=== PATIENT | male | born 1975 | race African-American/Black ===

== ENCOUNTER 2019-11-08 10:49 | Emergency (ER) | payer OTHER ==
[~2019-11-08] VITALS: Ht 188 cm; Wt 106.8 kg
[~2019-11-08 10:49] MED LIST: ANTIBIOTIC; HTN MED
[2019-11-08] MEDS: MORPHINE SULFATE 2 MG/ML SYRINGE IVP ONE (11:57)
[2019-11-08 11:58] LABS: BASOPHILS % (AUTO) 0.5 % (0.0-2.0); EOSINOPHILS % (AUTO) 5.4 % (1.0-6.0); HEMATOCRIT 51.5 % (41-53); HEMOGLOBIN 16.4 g/dL (13.5-17.5); LYMPHOCYTES # (AUTO) 1.5 K/uL (1.0-4.8); LYMPHOCYTES % (AUTO) 17.6 % (22.0-44.0); MEAN CORPUSCULAR HEMOGLOBIN 23.9 pg (26.0-34.0); MEAN CORPUSCULAR HGB CONC 31.8 G/dL (31.0-37.0); MEAN CORPUSCULAR VOLUME 75 fL (80-100); MONOCYTES # (AUTO) 0.9 K/uL (0.1-1.0); MONOCYTES % (AUTO) 10.3 % (2.0-9.0); NEUTROPHILS # (AUTO) 5.8 K/uL (1.8-7.7); NEUTROPHILS % (AUTO) 66.2 % (40.0-70.0); PLATELET COUNT (AUTO) 179 K/uL (150-450); RED BLOOD CELL COUNT(AUTO) 6.85 MIL/uL (4.50-5.90); RED CELL DISTRIBUTION WIDTH 15.9 % (11.5-14.5)
[2019-11-08] MEDS: AMPICILLIN SODIUM/SULBACTAM NA 3 GM in SODIUM CHLORIDE 0.9% 100 ML IV ONE (12:08)
[2019-11-08 12:12] LABS: ANION GAP 8 mmol/L (8-16); CALCIUM, TOTAL 9.7 mg/dL (8.8-10.5); CARBON DIOXIDE 29 mmol/L (22-29); CHLORIDE 102 mmol/L (98-107); CREATININE 1.34 mg/dL (0.60-1.30); GLOMERULAR FILTR. RATE CALC > 60 mL/min (>60); GLUCOSE,RANDOM 299 mg/dL (70-110); POTASSIUM 4.3 mmol/L (3.5-5.1); SODIUM SERUM 139 mmol/L (136-145); UREA NITROGEN, BLOOD 13 mg/dL (7-18)
[2019-11-08] MEDS ORDERED: SODIUM CHLORIDE 0.9% 100 ML ONE (12:16)
[2019-11-08] MEDS ORDERED: IOVERSOL 320 MG/ML 100 ML VIAL ONE (12:16)
[2019-11-08] MEDS ORDERED: IOVERSOL 350 MG/ML 100 ML VIAL ONE (12:18)
[2019-11-08 14:41] VITALS: BP 149/92
== END 2019-11-08 14:47 | disposition home or self-care (01) ==
LOC: EDUNIT# 10:49 → EMS 10:59
DX: R68.84 Jaw pain (principal); R73.9 Hyperglycemia, unspecified; I10 Essential (primary) hypertension; F17.210 Nicotine dependence, cigarettes, uncomplicated
CPT/HCPCS: 36415; 70491; 80048; 85025; 96365; 96375; 99285; J0295; J2270; J7050; Q9967

== ENCOUNTER 2022-06-18 11:51 | Inpatient (IN) | payer MEDICAID, OTHER ==
[~2022-06-18] VITALS: Ht 182.9 cm; Wt 90.3 kg
[2022-06-18] MEDS ORDERED: SODIUM CHLORIDE 0.9% 1,000 ML IV ONE (12:30)
[2022-06-18 12:32] LABS: BASOPHILS % (AUTO) 1.1 % (0.0-2.0); EOSINOPHILS % (AUTO) 0.7 % (1.0-6.0); HEMOGLOBIN 12.9 g/dL (13.5-17.5); LYMPHOCYTES # (AUTO) 1.4 K/uL (1.0-4.8); LYMPHOCYTES % (AUTO) 14.8 % (22.0-44.0); MEAN CORPUSCULAR HEMOGLOBIN 23.2 pg (26.0-34.0); MEAN CORPUSCULAR HGB CONC 31.5 G/dL (31.0-37.0); MEAN CORPUSCULAR VOLUME 74 fL (80-100); MONOCYTES % (AUTO) 10.1 % (2.0-9.0); NEUTROPHILS % (AUTO) 73.3 % (40.0-70.0); PLATELET COUNT (AUTO) 275 K/uL (150-450); RED BLOOD CELL COUNT(AUTO) 5.56 MIL/uL (4.50-5.90); RED CELL DISTRIBUTION WIDTH 14.2 % (11.5-14.5)
[2022-06-18 12:44] LABS: ANION GAP 6 mmol/L (8-16); CALCIUM, TOTAL 9.4 mg/dL (8.8-10.5); CARBON DIOXIDE 28 mmol/L (22-29); CHLORIDE 102 mmol/L (98-107); CREATININE 1.09 mg/dL (0.60-1.30); GLOMERULAR FILTR. RATE CALC > 60 mL/min (>60); GLUCOSE,RANDOM 252 mg/dL (70-110); POTASSIUM 3.9 mmol/L (3.5-5.1); SODIUM SERUM 136 mmol/L (136-145); UREA NITROGEN, BLOOD 12 mg/dL (7-18)
[2022-06-18 12:50] LABS: ALANINE AMINOTRANSFERASE 42 U/L (12-78); ALKALINE PHOSPHATASE 112 U/L (46-116); ASPARTATE AMINOTRANSFERASE 42 U/L (15-37); BILIRUBIN,TOTAL 0.4 mg/dL (0.1-1.0); TOTAL PROTEIN, SERUM 7.3 g/dL (6.4-8.2)
[2022-06-18] MEDS ORDERED: LORazepam 2 MG/ML VIAL ONE (14:19)
[2022-06-18] MEDS ORDERED: HALOPERIDOL LACTATE 5 MG/ML VIAL ONE (14:19)
[2022-06-18] MEDS ORDERED: DiphenhydrAMINE HCL 50 MG/ML VIAL ONE (14:19)
[2022-06-18] MEDS ORDERED: DiphenhydrAMINE HCL 50 MG/ML VIAL IM ONE (14:30)
[2022-06-18] MEDS ORDERED: LORazepam 2 MG/ML VIAL IM ONE (14:30)
[2022-06-18] MEDS ORDERED: HALOPERIDOL LACTATE 5 MG/ML VIAL IM ONE (14:30)
[2022-06-18] MEDS ORDERED: LORazepam 2 MG TABLET PO PRN (15:00)
[2022-06-18] MEDS ORDERED: HALOPERIDOL 5 MG TABLET PO PRN (15:00)
[2022-06-18 17:57] LABS: COVID AG,FIA SOURCE NASOPHARYNGEAL
[2022-06-18 18:05] LABS: APPEARANCE,URINE CLEAR (CLEAR); BILIRUBIN,URINE NEGATIVE (NEGATIVE); GLUCOSE, URINE (UA) >=1000 mg/dL (NEGATIVE); KETONES,URINE NEGATIVE (NEGATIVE); LEUKOCYTE ESTERASE ,URINE TRACE (NEGATIVE); NITRATE,URINE NEGATIVE (NEGATIVE); OCCULT BLOOD,URINE NEGATIVE (NEGATIVE); PH,URINE 6.5 (5.0-8.0); PROTEIN,URINE NEGATIVE (NEGATIVE)
[2022-06-18 18:12] LABS: AMPHET/METH SCREEN,URINE POSITIVE (NEGATIVE); BARBITURATE SCREEN, URINE NEGATIVE (NEGATIVE); BENZODIAZEPINES SCREEN,URINE NEGATIVE (NEGATIVE); CANNABINOID SCREEN,URINE POSITIVE (NEGATIVE); COCAINE SCREEN,URINE NEGATIVE (NEGATIVE); METHADONE SCREEN, URINE NEGATIVE (NEGATIVE); OPIATE SCREEN,URINE NEGATIVE (NEGATIVE)
[2022-06-18 18:16] LABS: BACTERIA,URINE None Seen /HPF (None Seen); PHENCYCLIDINE SCREEN,URINE NEGATIVE (NEGATIVE); RBC,URINE None Seen /HPF (0-2); SQUAMOUS EPITHELIAL CELL,UR Few /LPF (None Seen); WBC,URINE 0-2 /HPF (0-5)
[2022-06-19 04:12] LABS: GLUCOMETER DEV NAME(LOC) BV3N.; GLUCOSE,POINT OF CARE 182 MG/DL (70-110)
[2022-06-19] MEDS ORDERED: PNEUMOCOCCAL VACCINE POLYVALENT 0.5 ML VIAL [PPSV23] IM. ONE (05:15)
[2022-06-19] MEDS ORDERED: LOPERAMIDE HCL 2 MG CAPSULE PO PRN (05:30)
[2022-06-19] MEDS ORDERED: ONDANSETRON HCL 4 MG TABLET PO PRN (05:30)
[2022-06-19] MEDS ORDERED: OMEPRAZOLE 20 MG CAPSULE PO PRN (05:30)
[2022-06-19] MEDS ORDERED: BENZOCAINE/MENTHOL LOZENGE PO PRN (05:30)
[2022-06-19] MEDS ORDERED: DOCUSATE SODIUM 100 MG CAPSULE PO PRN (05:30)
[2022-06-19] MEDS ORDERED: PETROLATUM,WHITE 28 GM JELLY TP PRN (05:30)
[2022-06-19] MEDS ORDERED: CloNIDine HCL 0.1 MG TABLET PO PRN (05:30)
[2022-06-19] MEDS ORDERED: IBUPROFEN 600 MG TABLET PO PRN (05:30)
[2022-06-19] MEDS ORDERED: MAGNESIUM HYDROXIDE SUSPENSION 30 ML UDCUP PO PRN (05:30)
[2022-06-19] MEDS ORDERED: GLUCAGON,HUMAN RECOMBINANT 1 MG VIAL IM PRN (05:30)
[2022-06-19] MEDS ORDERED: BACITRACIN 28 GM OINTMENT TP PRN (05:30)
[2022-06-19] MEDS ORDERED: MAG HYDROX/AL HYDROX/SIMETH ES 30 ML SUSPENSION UDCUP PO PRN (05:30)
[2022-06-19] MEDS ORDERED: ALBUTEROL SULFATE HFA 90 MCG/PUFF 8 GM INHALER IH PRN (05:30)
[2022-06-19] MEDS ORDERED: ACETAMINOPHEN 325 MG TABLET PO PRN (05:30)
[2022-06-19 07:06] LABS: GLUCOMETER DEV NAME(LOC) BV3N.; GLUCOSE,POINT OF CARE 100 MG/DL (70-110)
[2022-06-19 10:00] VITALS: BP 154/93
[2022-06-19] MEDS: INSULIN LISPRO 100 UNITS/ML SQ PRN ×3 (11:16→20:42)
[2022-06-19 11:26] LABS: GLUCOMETER DEV NAME(LOC) BV3N.; GLUCOSE,POINT OF CARE 294 MG/DL (70-110)
[2022-06-19 17:02] LABS: GLUCOMETER DEV NAME(LOC) BV3N.; GLUCOSE,POINT OF CARE 312 MG/DL (70-110)
[2022-06-19 20:10] VITALS: BP 137/84
[2022-06-19 20:36] LABS: GLUCOMETER DEV NAME(LOC) BV3N.; GLUCOSE,POINT OF CARE 176 MG/DL (70-110)
[2022-06-19] MEDS: RisperiDONE 3 MG TABLET PO SCH (20:41)
[2022-06-19] MEDS: DIVALPROEX SODIUM 500 MG DR TABLET PO SCH (20:41)
[2022-06-20 06:16] LABS: GLUCOMETER DEV NAME(LOC) BV3N.; GLUCOSE,POINT OF CARE 105 MG/DL (70-110)
[2022-06-20 07:25] LABS: HEMOGLOBIN A1C 12.1 % (3.8-5.6)
[2022-06-20 07:31] LABS: CHOL/HDL RATIO 3.5 (4.2-7.3)
[2022-06-20 07:54] LABS: FREE T4 (FREE THYROXINE) 1.24 ng/dL (0.76-1.46); THYROID STIMULATING HORMONE 0.31 uIU/mL (0.36-3.74)
[2022-06-20 08:32] VITALS: BP 144/85
[2022-06-20] MEDS: DIVALPROEX SODIUM 500 MG DR TABLET PO SCH ×2 (08:58→20:30)
[2022-06-20] MEDS: RisperiDONE 3 MG TABLET PO SCH ×2 (08:58→20:30)
[2022-06-20] MEDS: INSULIN LISPRO 100 UNITS/ML SQ PRN ×2 (11:18→20:32)
[2022-06-20 11:33] LABS: GLUCOMETER DEV NAME(LOC) BV3N.; GLUCOSE,POINT OF CARE 373 MG/DL (70-110)
[2022-06-20 14:15] VITALS: BP 141/87
[2022-06-20] MEDS ORDERED: GLUCAGON,HUMAN RECOMBINANT 1 MG VIAL IM PRN (17:00)
[2022-06-20 17:07] LABS: GLUCOMETER DEV NAME(LOC) BV3N.; GLUCOSE,POINT OF CARE 430 MG/DL (70-110)
[2022-06-20] MEDS: CEPHALEXIN MONOHYDRATE 500 MG CAPSULE PO SCH ×2 (17:09→20:30)
[2022-06-20] MEDS: MetFORMIN HCL 500 MG TABLET PO SCH (17:09)
[2022-06-20] MEDS ORDERED: INSULIN LISPRO 100 UNITS/ML SQ ONE (17:15)
[2022-06-20 20:20] VITALS: BP 136/86
[2022-06-20] MEDS: ZOLPIDEM TARTRATE 10 MG TABLET PO PRN (20:30)
[2022-06-20 21:03] LABS: GLUCOMETER DEV NAME(LOC) BV3N.; GLUCOSE,POINT OF CARE 160 MG/DL (70-110)
[2022-06-20] MEDS: INSULIN GLARGINE,HUM.REC.ANLOG 100 UNITS/ML SQ SCH (21:06)
[2022-06-21 04:30] VITALS: BP 105/69
[2022-06-21] MEDS: MetFORMIN HCL 500 MG TABLET PO SCH ×2 (06:20→16:53)
[2022-06-21 06:35] LABS: GLUCOMETER DEV NAME(LOC) BV3N.; GLUCOSE,POINT OF CARE 108 MG/DL (70-110)
[2022-06-21 08:18] VITALS: BP 129/70
[2022-06-21] MEDS: RisperiDONE 3 MG TABLET PO SCH ×2 (09:17→20:44)
[2022-06-21] MEDS: CEPHALEXIN MONOHYDRATE 500 MG CAPSULE PO SCH ×4 (09:17→20:44)
[2022-06-21] MEDS: DIVALPROEX SODIUM 500 MG DR TABLET PO SCH ×2 (09:17→20:44)
[2022-06-21] MEDS: INSULIN LISPRO 100 UNITS/ML SQ PRN ×3 (12:09→20:52)
[2022-06-21 12:21] LABS: GLUCOMETER DEV NAME(LOC) BV3N.; GLUCOSE,POINT OF CARE 212 MG/DL (70-110)
[2022-06-21 17:46] LABS: GLUCOMETER DEV NAME(LOC) BV3N.; GLUCOSE,POINT OF CARE 211 MG/DL (70-110)
[2022-06-21 20:25] VITALS: BP 120/64
[2022-06-21 20:41] LABS: GLUCOMETER DEV NAME(LOC) BV3N.; GLUCOSE,POINT OF CARE 253 MG/DL (70-110)
[2022-06-21] MEDS: ZOLPIDEM TARTRATE 10 MG TABLET PO PRN (20:44)
[2022-06-21] MEDS: INSULIN GLARGINE,HUM.REC.ANLOG 100 UNITS/ML SQ SCH (20:52)
[2022-06-22 06:12] LABS: GLUCOMETER DEV NAME(LOC) BV3N.; GLUCOSE,POINT OF CARE 113 MG/DL (70-110)
[2022-06-22] MEDS: MetFORMIN HCL 500 MG TABLET PO SCH ×2 (06:21→16:31)
[2022-06-22] MEDS: RisperiDONE 3 MG TABLET PO SCH ×2 (08:22→20:03)
[2022-06-22] MEDS: DIVALPROEX SODIUM 500 MG DR TABLET PO SCH ×2 (08:22→20:03)
[2022-06-22] MEDS: CEPHALEXIN MONOHYDRATE 500 MG CAPSULE PO SCH ×4 (08:22→20:03)
[2022-06-22 10:35] VITALS: BP 110/90
[2022-06-22] MEDS: INSULIN LISPRO 100 UNITS/ML SQ PRN ×3 (11:16→20:19)
[2022-06-22 11:21] LABS: GLUCOMETER DEV NAME(LOC) BV3N.; GLUCOSE,POINT OF CARE 193 MG/DL (70-110)
[2022-06-22 16:36] LABS: GLUCOMETER DEV NAME(LOC) BV3N.; GLUCOSE,POINT OF CARE 239 MG/DL (70-110)
[2022-06-22 20:19] VITALS: BP 118/73
[2022-06-22] MEDS: INSULIN GLARGINE,HUM.REC.ANLOG 100 UNITS/ML SQ SCH (20:19)
[2022-06-22 20:31] LABS: GLUCOMETER DEV NAME(LOC) BV3N.; GLUCOSE,POINT OF CARE 162 MG/DL (70-110)
[2022-06-23 06:26] LABS: GLUCOMETER DEV NAME(LOC) BV3N.; GLUCOSE,POINT OF CARE 116 MG/DL (70-110)
[2022-06-23] MEDS: MetFORMIN HCL 500 MG TABLET PO SCH ×2 (06:28→16:40)
[2022-06-23 08:35] VITALS: BP 137/87
[2022-06-23] MEDS: RisperiDONE 3 MG TABLET PO SCH (08:58)
[2022-06-23] MEDS: DIVALPROEX SODIUM 500 MG DR TABLET PO SCH (08:59)
[2022-06-23] MEDS: CEPHALEXIN MONOHYDRATE 500 MG CAPSULE PO SCH ×3 (08:59→16:40)
[2022-06-23] MEDS: INSULIN LISPRO 100 UNITS/ML SQ PRN ×2 (11:11→16:45)
[2022-06-23 11:31] LABS: GLUCOMETER DEV NAME(LOC) BV3N.; GLUCOSE,POINT OF CARE 192 MG/DL (70-110)
[2022-06-23 17:11] LABS: GLUCOMETER DEV NAME(LOC) BV3N.; GLUCOSE,POINT OF CARE 192 MG/DL (70-110)
[2022-06-23] MEDS ORDERED: DIVA-112 PO (17:55)
[2022-06-23] MEDS ORDERED: RISP3TAB63 PO (17:55)
[2022-06-23] MEDS ORDERED: CEPH-558 PO (18:45)
[2022-06-23] MEDS ORDERED: METF-1211 PO (18:46)
[2022-06-23] MEDS ORDERED: INSLAN SQ (18:48)
[2022-06-23 20:41] VITALS: BP 100/69
== END 2022-06-23 19:30 | disposition home or self-care (01) | DRG 750 ==
LOC: EMS 11:53 → B3A 06-19 00:28
PROVIDERS: ADMIT Psychiatry & Neurology Psychiatry; ATTEND Psychiatry & Neurology Psychiatry
DX: F25.9 Schizoaffective disorder, unspecified (principal); F12.90 Cannabis use, unspecified, uncomplicated; F41.9 Anxiety disorder, unspecified; I10 Essential (primary) hypertension; G47.00 Insomnia, unspecified; K59.00 Constipation, unspecified
CPT/HCPCS: 80053; 80061; 80307; 81001; 82962; 83036; 84439; 84443; 85025; 99291; G0480; J1200; J1630; J1815; J2060; J7030

== ENCOUNTER 2022-07-02 13:25 | Emergency (ER) | payer MEDICAID, OTHER ==
[~2022-07-02] VITALS: Ht 182.9 cm; Wt 86.4 kg
[~2022-07-02 13:25] MED LIST changes: -ANTIBIOTIC; +CEPH-558 PO; +DIVA-112 PO; -HTN MED; +INSLAN SQ; +METF-1211 PO; +RISP3TAB63 PO
[2022-07-02 13:28] VITALS: BP 146/54
== END 2022-07-02 16:01 | disposition left against medical advice (07) ==
LOC: EMS 13:27
DX: Z53.21 Procedure and treatment not carried out due to patient leaving prior to being seen by health care provider (principal)
CPT/HCPCS: 82962